=== PATIENT | male | born 1975 | race Caucasian/White ===

== ENCOUNTER 2016-07-17 09:59 | Emergency (ER) | payer MEDICAID ==
[2016-07-17 10:20] VITALS: RESP 16
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
[2016-07-17 11:18] VITALS: BP 128/73; PULSE 76; TEMP 97.9; O2SAT 96
== END 2016-07-17 11:20 | disposition home or self-care (01) ==
LOC: CED 09:59
DX: S70.01XA Contusion of right hip, initial encounter (principal); F12.90 Cannabis use, unspecified, uncomplicated; Z87.891 Personal history of nicotine dependence; V19.3XXA Pedal cyclist (driver) (passenger) injured in unspecified nontraffic accident, initial encounter
CPT/HCPCS: 73110-PO; 73502-PO; G0463-PO